=== PATIENT | male | born 1935 | race Caucasian/White ===

== ENCOUNTER 2018-03-02 20:32 | Observation (INO) | payer MEDICARE, OTHER ==
[2018-03-02 22:15] LABS: CHLORIDE,CL 104 mmol/L (98-107); SODIUM,NA 139 mmol/L (136-145)
[2018-03-02] MEDS: D5 1/2 NS w/ 20 mEq/L KCl 1,000 ML IV SCH (23:24)
--- NOTE | 2018-03-03 02:51 | EDM.PDOC ---
ED HPI GENERAL MEDICAL PROBLEM - General Chief Complaint: Neurological Problem Time Seen by Provider: 03/02/18 20:32 Source of Information: Reports: Patient - History of Present Illness Onset: Today Location: Reports: Generalized - Related Data Allergies Allergy/AdvReac Type Severity Reaction Status Date / Time atorvastatin calcium Allergy Body Aches Verified 08/28/16 17:56 [From Lipitor] Home Meds: Home Meds Clopidogrel [Plavix] 75 mg PO DAILY 04/29/14 [History] Polyethylene Glycol 3350 [Miralax] 16 gm PO DAILY PRN 09/01/14 [History] Furosemide [Lasix] 20 mg PO BID 02/28/16 [History] Levothyroxine [Synthroid] 50 mcg PO DAILY 02/28/16 [History] Omeprazole 20 mg PO DAILY 02/28/16 [History] Metoprolol Succinate [Toprol XL 100mg] 100 mg PO DAILY 08/28/16 [History] Lisinopril [Prinivil] 15 mg PO DAILY #45 tablet 09/05/16 [Rx] Insulin Aspart [NovoLOG] 7 unit SUBCUT ACBREAKFAST 03/02/18 [History] Insulin Aspart [NovoLOG] 10 unit SUBCUT BIDMEALS 03/02/18 [History] Insulin Degludec [Tresiba Flextouch U-100] 32 unit SQ DAILY 03/02/18 [History] Loperamide [Imodium] 2 mg PO DAILY PRN 03/02/18 [History] Ondansetron [Zofran ODT] 4 mg PO Q4H PRN 03/02/18 [History] Psyllium Husk [Metamucil] 660 gm PO DAILY 03/02/18 [History] buPROPion [Wellbutrin] 100 mg PO BID 03/02/18 [History] Past Medical History HEENT History: Reports: Cataract Cardiovascular History: Reports: Afib, Bypass, CAD, Heart Failure, Heart Valve Replacement, High Cholesterol, Hypertension, NV, Other (See Below) Other Cardiovascular History: carotid stenosis Respiratory History: Reports: None Gastrointestinal History: Reports: Chronic Constipation Genitourinary History: Reports: BPH, Chronic Renal Insuffiency Musculoskeletal History: Reports: Other (See Below) Other Musculoskeletal History: pelvic fracture Neurological History: Reports: None Psychiatric History: Reports: Depression Endocrine/Metabolic History: Reports: Diabetes, Type II, Hypothyroidism Hematologic History: Reports: Anemia Immunologic History: Reports: None Oncologic (Cancer) History: Reports: None Dermatologic History: Reports: None - Infectious Disease History Infectious Disease History: Reports: None - Past Surgical History HEENT Surgical History: Reports: Cataract Surgery, Tonsillectomy Cardiovascular Surgical History: Reports: Coronary Artery Bypass, Valve Replacement Male Surgical History: Reports: Other (See Below) Other Male Surgeries/Procedures: TURP, photoselective vaporization of prostate Neurological Surgical History: Reports: None Oncologic Surgical History: Reports: None Social & Family History - Family History Family Medical History: Noncontributory Cardiac: Reports: CAD Oncologic: Reports: Other (See Below) Other Oncologic Family History: Unknown primary cancers in mom and 1 sibling - Tobacco Use Smoking Status *Q: Never Smoker Second Hand Smoke Exposure: No - Caffeine Use Caffeine Use: Reports: None - Recreational Drug Use Recreational Drug Use: No - Living Situation & Occupation Living situation: Reports: , Alone ED ROS GENERAL - Review of Systems Review Of Systems: Unable To Obtain HEENT: Reports: No Symptoms Respiratory: Reports: No Symptoms Cardiovascular: Reports: No Symptoms Musculoskeletal: Reports: No Symptoms Skin: Reports: No Symptoms Neurological: Reports: No Symptoms ED EXAM, GENERAL - Physical Exam Exam: See Below General Appearance: Alert, WD/WN, No Apparent Distress Eye Exam: Bilateral Eye: EOMI, Normal Fundi, Normal Inspection, PERRL Ears: Normal External Exam, Normal Canal, Hearing Grossly Normal, Normal TMs Ear Exam: Bilateral Ear: Auricle Normal, Canal Normal, TM normal Nose: Normal Inspection, Normal Mucosa, No Blood Throat/Mouth: Normal Inspection, Normal Lips, Normal Teeth, Normal Gums, Normal Oropharynx, Normal Voice, No Airway Compromise Head: Atraumatic, Normocephalic Neck: Normal Inspection, Supple, Non-Tender, Full Range of Motion Respiratory/Chest: No Respiratory Distress, Lungs Clear, Normal Breath Sounds, No Accessory Muscle Use, Chest Non-Tender Cardiovascular: Normal Peripheral Pulses, Regular Rate, Rhythm, No Edema, No Gallop, No JVD, No Murmur, No Rub Peripheral Pulses: 4+: Radial (L), Radial (R) GI/Abdominal: Normal Bowel Sounds, Soft, Non-Tender, No Organomegaly, No Distention, No Abnormal Bruit, No Mass (Male) Exam: Deferred Rectal (Males) Exam: Deferred Back Exam: Normal Inspection, Full Range of Motion Extremities: Normal Inspection Neurological: Alert, Oriented, CN II-XII Intact, Normal Cognition, Normal Gait, Normal Reflexes, No Motor/Sensory Deficits Psychiatric: Normal Affect, Normal Mood Skin Exam: Warm, Dry, Intact, Normal Color, No Rash Course - Vital Signs Last Recorded V/S: Last Vital Signs Temp 36.1 C 03/03/18 02:00 Pulse 69 03/03/18 02:00 Resp 16 03/03/18 02:00 BP 145/88 H 03/03/18 02:00 Pulse Ox 97 03/03/18 02:00 - Orders/Labs/Meds Orders: Active Orders 24 hr Category Date Time Status EKG Documentation Completion [RC] STAT Care 03/02/18 20:34 Active Head wo Cont [CT] Stat Exams 03/02/18 20:34 Taken CULTURE BLOOD [BC] Stat Lab 03/02/18 21:24 Received CULTURE BLOOD [BC] Stat Lab 03/02/18 21:24 Received UA W/MICROSCOPIC [URIN] Stat Lab 03/02/18 21:01 Ordered Blood Culture x2 Reflex Set [OM.PC] Stat Oth 03/02/18 20:36 Ordered Labs: Laboratory Tests 03/02/18 03/02/18 03/02/18 Range/Units 21:24 21:24 21:24 WBC 13.1 H (4.0-10.0) x10^3/uL RBC 4.48 L (4.5-6.0) x10^6/uL Hgb 12.9 L D (14.0-18.0) g/dL Hct 39.2 L (40.0-52.0) % MCV 87.5 D (78.0-93.0) fL MCH 28.8 (26.0-32.0) pg MCHC 32.9 (32.0-36.0) g/dL RDW Coeff of Geraldine 15.9 H (10.0-15.0) % Plt Count 304 (130-400) x10^3/uL Neut % (Auto) 90.3 H (50.0-80.0) % Lymph % (Auto) 5.3 L (25.0-50.0) % [place] % (Auto) 3.9 (2.0-11.0) % Eos % (Auto) 0.3 (0.0-4.0) % Baso % (Auto) 0.2 (0.2-1.2) % PT 10.5 (9.6-11.4) SEC INR 1.0 L (2.0-3.5) Sodium 139 (136-145) mmol/L Potassium 3.5 (3.5-5.1) mmol/L Chloride 104 (98-107) mmol/L Carbon Dioxide 29 (21-32) mmol/L Anion Gap 9.5 L (10-20) mmol/L BUN 34 H (7-18) mg/dL Creatinine 1.4 H (0.70-1.30) mg/dL Est Cr Clr Drug Dosing TNP Estimated GFR (MDRD) 48 Glucose 77 (74-106) mg/dL POC Glucose (74-106) mg/dL Lactic Acid (0.4-2.0) mmol/L Calcium 8.5 (8.5-10.1) mg/dL Corrected Calcium 9.30 (8.5-10.1) mg/dL Total Bilirubin 0.3 (0.2-1.0) mg/dL AST 19 (15-37) U/L ALT 27 (16-63) U/L Alkaline Phosphatase 113 (46-116) U/L Troponin I < 0.017 (<=0.056) ng/mL C-Reactive Protein 1.0 H (<=0.9) mg/dL Total Protein 7.1 (6.4-8.2) g/dL Albumin 3.0 L (3.4-5.0) g/dL Globulin 4.1 Albumin/Globulin Ratio 0.73 TSH, Ultra Sensitive 5.147 H (0.358-3.74) uIU/mL 03/02/18 03/02/18 Range/Units 21:24 21:25 WBC (4.0-10.0) x10^3/uL RBC (4.5-6.0) x10^6/uL Hgb (14.0-18.0) g/dL Hct (40.0-52.0) % MCV (78.0-93.0) fL MCH (26.0-32.0) pg MCHC (32.0-36.0) g/dL RDW Coeff of Geraldine (10.0-15.0) % Plt Count (130-400) x10^3/uL Neut % (Auto) (50.0-80.0) % Lymph % (Auto) (25.0-50.0) % [place] % (Auto) (2.0-11.0) % Eos % (Auto) (0.0-4.0) % Baso % (Auto) (0.2-1.2) % PT (9.6-11.4) SEC INR (2.0-3.5) Sodium (136-145) mmol/L Potassium (3.5-5.1) mmol/L Chloride (98-107) mmol/L Carbon Dioxide (21-32) mmol/L Anion Gap (10-20) mmol/L BUN (7-18) mg/dL Creatinine (0.70-1.30) mg/dL Est Cr Clr Drug Dosing Estimated GFR (MDRD) Glucose (74-106) mg/dL POC Glucose 81 (74-106) mg/dL Lactic Acid 0.9 (0.4-2.0) mmol/L Calcium (8.5-10.1) mg/dL Corrected Calcium (8.5-10.1) mg/dL Total Bilirubin (0.2-1.0) mg/dL AST (15-37) U/L ALT (16-63) U/L Alkaline Phosphatase (46-116) U/L Troponin I (<=0.056) ng/mL C-Reactive Protein (<=0.9) mg/dL Total Protein (6.4-8.2) g/dL Albumin (3.4-5.0) g/dL Globulin Albumin/Globulin Ratio TSH, Ultra Sensitive (0.358-3.74) uIU/mL Meds: Medications Discontinued Medications Generic Name Dose Route Start Last Admin Trade Name Freq PRN Reason Stop Dose Admin Potassium Chloride/Dextrose/Sod Cl 1,000 mls @ 125 mls/hr 03/02/18 23:15 02/12 23:24 D5 1/2 Ns W/ 20 Meq/L Kcl IV 125 mls/hr ASDIRECTED ARY Administration Departure - Departure Time of Disposition: 23:00 Disposition: Refer to Observation Clinical Impression: Hypoglycemia - Discharge Information - My Orders Last 24 Hours: My Active Orders 03/02/18 20:34 EKG Documentation Completion [RC] STAT Head wo Cont [CT] Stat 03/02/18 20:36 Blood Culture x2 Reflex Set [OM.PC] Stat 03/02/18 21:01 UA W/MICROSCOPIC [URIN] Stat 03/02/18 21:24 CULTURE BLOOD [BC] Stat CULTURE BLOOD [BC] Stat - Assessment/Plan Last 24 Hours: My Active Orders 03/02/18 20:34 EKG Documentation Completion [RC] STAT Head wo Cont [CT] Stat 03/02/18 20:36 Blood Culture x2 Reflex Set [OM.PC] Stat 03/02/18 21:01 UA W/MICROSCOPIC [URIN] Stat 03/02/18 21:24 CULTURE BLOOD [BC] Stat CULTURE BLOOD [BC] Stat
[2018-03-03 06:37] VITALS: BP 142/67
[2018-03-03] MEDS ORDERED: Loperamide 2 MG Cap PO PRN (07:19)
[2018-03-03] MEDS ORDERED: Ondansetron 4 MG Tab.DIS PO PRN (07:19)
[2018-03-03] MEDS ORDERED: Polyethylene Glycol 3350 Powder 17 GM Packet PO PRN (07:19)
[2018-03-03] MEDS ORDERED: PSYLLIUM HUSK PO SCH (08:00)
[2018-03-03] MEDS ORDERED: METOPROLOL SUCCINATE PO SCH (08:00)
[2018-03-03] MEDS ORDERED: Insulin Degludec [Tresiba Flextouch U-100] SQ SCH (08:00)
[2018-03-03] MEDS ORDERED: LISINOPRIL PO SCH (08:00)
[2018-03-03] MEDS ORDERED: Insulin Aspart 100 Units/ML 3 ML Pen SUBCUT SCH (08:00)
[2018-03-03] MEDS ORDERED: BUPROPION 100 MG PO SCH (08:00)
[2018-03-03] MEDS ORDERED: Clopidogrel 75 MG Tab (OWN SUPPLY) PO SCH (08:00)
[2018-03-03] MEDS ORDERED: Levothyroxine 50 MCG Tab (OWN SUPPLY) PO SCH (08:00)
[2018-03-03] MEDS ORDERED: Furosemide 20 MG (OWN SUPPLY) PO SCH (08:00)
--- NOTE | 2018-03-03 08:29 | PCM.DCSUM1 ---
Discharge Summary - Hospital Course HPI Initial Comments: Patient was brought to the ED last evening for issues with hypoglycemia. Upon presentation, patient was very lethargic with a decreased in LOC. Initial serum blood sugar was 77. Patient has a history to IDDM and is currently on Novolog and Tresiba. According to old records, patient does not have a consistent history of hypoglycemia. CT of Head was obtained for LOC. CT did not show any acute problems. - Discharge Data Discharge Date: 03/03/18 Discharge Disposition: Home, Self-Care 01 Condition: Good - Patient Summary/Data Operative Procedure(s) Performed: None Labs Pending at D/C: None Hospital Course: Patient did have a couple of blood sugar reading in the 60's. Patient was appropriately treated. His mentation did improve to baseline at time of discharge. No medication changes were made. Patient did not have any complaints. Patient remained hemodynamically stable and afebrile. - Patient Instructions Diet: Diabetic Diet Activity: Rest and Relax Today Driving: Do Not Drive Showering/Bathing: May Shower Notify Provider of: Fever, Increased Pain, Nausea and/or Vomiting Other/Special Instructions: low blood sugars - Discharge Plan Home Medications: Home Meds Clopidogrel [Plavix] 75 mg PO DAILY 04/29/14 [History] Polyethylene Glycol 3350 [Miralax] 16 gm PO DAILY PRN 09/01/14 [History] Furosemide [Lasix] 20 mg PO BID 02/28/16 [History] Levothyroxine [Synthroid] 50 mcg PO DAILY 02/28/16 [History] Omeprazole 20 mg PO DAILY 02/28/16 [History] Metoprolol Succinate [Toprol XL 100mg] 100 mg PO DAILY 08/28/16 [History] Lisinopril [Prinivil] 15 mg PO DAILY #45 tablet 09/05/16 [Rx] Insulin Aspart [NovoLOG] 7 unit SUBCUT ACBREAKFAST 03/02/18 [History] Insulin Aspart [NovoLOG] 10 unit SUBCUT BIDMEALS 03/02/18 [History] Insulin Degludec [Tresiba Flextouch U-100] 32 unit SQ DAILY 03/02/18 [History] Loperamide [Imodium] 2 mg PO DAILY PRN 03/02/18 [History] Ondansetron [Zofran ODT] 4 mg PO Q4H PRN 03/02/18 [History] Psyllium Husk [Metamucil] 660 gm PO DAILY 03/02/18 [History] buPROPion [Wellbutrin] 100 mg PO BID 03/02/18 [History] Patient Handouts: Hypoglycemia Referrals: Essence Torrez DO [Primary Care Provider] - ([facility] will call you with an appt. time and date, with Dr. Geni Torrez) - Discharge Summary/Plan Comment DC Time >30 min.: No Discharge Summary/Plan Comment: Patient will be discharge home today. No changes with any home medications. Discussed consistency with taking DM meds and carb counting. Patient to follow up with PCP in one week for a recheck. - General Info Date of Service: 03/03/18 Admission Dx/Problem (Free Text: Hypoglycemia Decreased LOC Subjective Update: Patient offers no specific complaints. He denies any chest pain or SOB. He denies any focal neurological deficits. Functional Status: Reports: Pain Controlled, Tolerating Diet, Ambulating, Urinating Numeric/FACES Score: 0 - Review of Systems General: Denies: Fever, Weakness Pulmonary: Denies: Shortness of Breath, Cough Cardiovascular: Denies: Chest Pain, Palpitations Gastrointestinal: Denies: Abdominal Pain, Nausea, Vomiting Skin: Reports: Other Neurological: Denies: Dizziness, Headache - Patient Data Vitals - Most Recent: Last Vital Signs Temp 36.1 C 03/03/18 06:00 Pulse 71 03/03/18 06:00 Resp 20 03/03/18 06:00 BP 142/67 H 03/03/18 06:00 Pulse Ox 98 03/03/18 06:00 Weight - Most Recent: 95.663 kg I&O - Last 24 hours: Intake & Output 03/02/18 03/03/18 03/03/18 22:59 06:59 14:59 Intake Total 366 Balance 366 Lab Results - Last 24 hrs: Laboratory Results - last 24 hr 03/02/18 03/02/18 03/02/18 Range/Units 21:24 21:24 21:24 WBC 13.1 H (4.0-10.0) x10^3/uL RBC 4.48 L (4.5-6.0) x10^6/uL Hgb 12.9 L D (14.0-18.0) g/dL Hct 39.2 L (40.0-52.0) % MCV 87.5 D (78.0-93.0) fL MCH 28.8 (26.0-32.0) pg MCHC 32.9 (32.0-36.0) g/dL RDW Coeff of Geraldine 15.9 H (10.0-15.0) % Plt Count 304 (130-400) x10^3/uL Neut % (Auto) 90.3 H (50.0-80.0) % Lymph % (Auto) 5.3 L (25.0-50.0) % Mccreary % (Auto) 3.9 (2.0-11.0) % Eos % (Auto) 0.3 (0.0-4.0) % Baso % (Auto) 0.2 (0.2-1.2) % PT 10.5 (9.6-11.4) SEC INR 1.0 L (2.0-3.5) POC ABG pH (7.35-7.45) POC ABG pCO2 (35-45) mmHG POC ABG pO2 (80-105) mmHG POC ABG HCO3 (22-26) mmol/L POC ABG Total CO2 (23-27) mmol/L POC ABG O2 Sat (95-98) % POC ABG Base Excess (-2-3) mmol/L POC FiO2 Sodium 139 (136-145) mmol/L Potassium 3.5 (3.5-5.1) mmol/L Chloride 104 (98-107) mmol/L Carbon Dioxide 29 (21-32) mmol/L Anion Gap 9.5 L (10-20) mmol/L BUN 34 H (7-18) mg/dL Creatinine 1.4 H (0.70-1.30) mg/dL Est Cr Clr Drug Dosing TNP Estimated GFR (MDRD) 48 Glucose 77 (74-106) mg/dL POC Glucose (74-106) mg/dL Lactic Acid (0.4-2.0) mmol/L Calcium 8.5 (8.5-10.1) mg/dL Corrected Calcium 9.30 (8.5-10.1) mg/dL Total Bilirubin 0.3 (0.2-1.0) mg/dL AST 19 (15-37) U/L ALT 27 (16-63) U/L Alkaline Phosphatase 113 (46-116) U/L Troponin I < 0.017 (<=0.056) ng/mL C-Reactive Protein 1.0 H (<=0.9) mg/dL Total Protein 7.1 (6.4-8.2) g/dL Albumin 3.0 L (3.4-5.0) g/dL Globulin 4.1 Albumin/Globulin Ratio 0.73 TSH, Ultra Sensitive 5.147 H (0.358-3.74) uIU/mL Urine Color (YELLOW) Urine Appearance (CLEAR) Urine pH (5.0-8.0) Ur Specific [place] Urine Protein (NEGATIVE) mg/dL Urine Glucose (UA) (NEGATIVE) mg/dL Urine Ketones (NEGATIVE) mg/dL Urine Occult Blood (NEGATIVE) Urine Nitrite (NEGATIVE) Urine Bilirubin (NEGATIVE) Urine Urobilinogen (0.2) EU/dL Ur Leukocyte Esterase (NEGATIVE) Urine RBC (NOT SEEN) /HPF Urine WBC (NOT SEEN) /HPF Ur Squamous Epith Cells (NEGATIVE) /HPF Urine Bacteria (NEGATIVE) /HPF Urine Mucus (NEGATIVE) /LPF 03/02/18 03/02/18 03/02/18 Range/Units 21:24 21:25 22:34 WBC (4.0-10.0) x10^3/uL RBC (4.5-6.0) x10^6/uL Hgb (14.0-18.0) g/dL Hct (40.0-52.0) % MCV (78.0-93.0) fL MCH (26.0-32.0) pg MCHC (32.0-36.0) g/dL RDW Coeff of Geraldine (10.0-15.0) % Plt Count (130-400) x10^3/uL Neut % (Auto) (50.0-80.0) % Lymph % (Auto) (25.0-50.0) % Mccreary % (Auto) (2.0-11.0) % Eos % (Auto) (0.0-4.0) % Baso % (Auto) (0.2-1.2) % PT (9.6-11.4) SEC INR (2.0-3.5) POC ABG pH (7.35-7.45) POC ABG pCO2 (35-45) mmHG POC ABG pO2 (80-105) mmHG POC ABG HCO3 (22-26) mmol/L POC ABG Total CO2 (23-27) mmol/L POC ABG O2 Sat (95-98) % POC ABG Base Excess (-2-3) mmol/L POC FiO2 Sodium (136-145) mmol/L Potassium (3.5-5.1) mmol/L Chloride (98-107) mmol/L Carbon Dioxide (21-32) mmol/L Anion Gap (10-20) mmol/L BUN (7-18) mg/dL Creatinine (0.70-1.30) mg/dL Est Cr Clr Drug Dosing Estimated GFR (MDRD) Glucose (74-106) mg/dL POC Glucose 81 65 L (74-106) mg/dL Lactic Acid 0.9 (0.4-2.0) mmol/L Calcium (8.5-10.1) mg/dL Corrected Calcium (8.5-10.1) mg/dL Total Bilirubin (0.2-1.0) mg/dL AST (15-37) U/L ALT (16-63) U/L Alkaline Phosphatase (46-116) U/L Troponin I (<=0.056) ng/mL C-Reactive Protein (<=0.9) mg/dL Total Protein (6.4-8.2) g/dL Albumin (3.4-5.0) g/dL Globulin Albumin/Globulin Ratio TSH, Ultra Sensitive (0.358-3.74) uIU/mL Urine Color (YELLOW) Urine Appearance (CLEAR) Urine pH (5.0-8.0) Ur Specific [place] Urine Protein (NEGATIVE) mg/dL Urine Glucose (UA) (NEGATIVE) mg/dL Urine Ketones (NEGATIVE) mg/dL Urine Occult Blood (NEGATIVE) Urine Nitrite (NEGATIVE) Urine Bilirubin (NEGATIVE) Urine Urobilinogen (0.2) EU/dL Ur Leukocyte Esterase (NEGATIVE) Urine RBC (NOT SEEN) /HPF Urine WBC (NOT SEEN) /HPF Ur Squamous Epith Cells (NEGATIVE) /HPF Urine Bacteria (NEGATIVE) /HPF Urine Mucus (NEGATIVE) /LPF 03/02/18 03/02/18 03/03/18 Range/Units 23:02 23:30 00:22 WBC (4.0-10.0) x10^3/uL RBC (4.5-6.0) x10^6/uL Hgb (14.0-18.0) g/dL Hct (40.0-52.0) % MCV (78.0-93.0) fL MCH (26.0-32.0) pg MCHC (32.0-36.0) g/dL RDW Coeff of Geraldine (10.0-15.0) % Plt Count (130-400) x10^3/uL Neut % (Auto) (50.0-80.0) % Lymph % (Auto) (25.0-50.0) % Mccreary % (Auto) (2.0-11.0) % Eos % (Auto) (0.0-4.0) % Baso % (Auto) (0.2-1.2) % PT (9.6-11.4) SEC INR (2.0-3.5) POC ABG pH 7.436 (7.35-7.45) POC ABG pCO2 40 (35-45) mmHG POC ABG pO2 73 L (80-105) mmHG POC ABG HCO3 27 H (22-26) mmol/L POC ABG Total CO2 28 H (23-27) mmol/L POC ABG O2 Sat 95 (95-98) % POC ABG Base Excess 3 (-2-3) mmol/L POC FiO2 0.28 Sodium (136-145) mmol/L Potassium (3.5-5.1) mmol/L Chloride (98-107) mmol/L Carbon Dioxide (21-32) mmol/L Anion Gap (10-20) mmol/L BUN (7-18) mg/dL Creatinine (0.70-1.30) mg/dL Est Cr Clr Drug Dosing Estimated GFR (MDRD) Glucose (74-106) mg/dL POC Glucose 67 L 84 (74-106) mg/dL Lactic Acid (0.4-2.0) mmol/L Calcium (8.5-10.1) mg/dL Corrected Calcium (8.5-10.1) mg/dL Total Bilirubin (0.2-1.0) mg/dL AST (15-37) U/L ALT (16-63) U/L Alkaline Phosphatase (46-116) U/L Troponin I (<=0.056) ng/mL C-Reactive Protein (<=0.9) mg/dL Total Protein (6.4-8.2) g/dL Albumin (3.4-5.0) g/dL Globulin Albumin/Globulin Ratio TSH, Ultra Sensitive (0.358-3.74) uIU/mL Urine Color (YELLOW) Urine Appearance (CLEAR) Urine pH (5.0-8.0) Ur Specific [place] Urine Protein (NEGATIVE) mg/dL Urine Glucose (UA) (NEGATIVE) mg/dL Urine Ketones (NEGATIVE) mg/dL Urine Occult Blood (NEGATIVE) Urine Nitrite (NEGATIVE) Urine Bilirubin (NEGATIVE) Urine Urobilinogen (0.2) EU/dL Ur Leukocyte Esterase (NEGATIVE) Urine RBC (NOT SEEN) /HPF Urine WBC (NOT SEEN) /HPF Ur Squamous Epith Cells (NEGATIVE) /HPF Urine Bacteria (NEGATIVE) /HPF Urine Mucus (NEGATIVE) /LPF 03/03/18 03/03/18 03/03/18 Range/Units 01:31 03:49 05:54 WBC (4.0-10.0) x10^3/uL RBC (4.5-6.0) x10^6/uL Hgb (14.0-18.0) g/dL Hct (40.0-52.0) % MCV (78.0-93.0) fL MCH (26.0-32.0) pg MCHC (32.0-36.0) g/dL RDW Coeff of Geraldine (10.0-15.0) % Plt Count (130-400) x10^3/uL Neut % (Auto) (50.0-80.0) % Lymph % (Auto) (25.0-50.0) % Mccreary % (Auto) (2.0-11.0) % Eos % (Auto) (0.0-4.0) % Baso % (Auto) (0.2-1.2) % PT (9.6-11.4) SEC INR (2.0-3.5) POC ABG pH (7.35-7.45) POC ABG pCO2 (35-45) mmHG POC ABG pO2 (80-105) mmHG POC ABG HCO3 (22-26) mmol/L POC ABG Total CO2 (23-27) mmol/L POC ABG O2 Sat (95-98) % POC ABG Base Excess (-2-3) mmol/L POC FiO2 Sodium (136-145) mmol/L Potassium (3.5-5.1) mmol/L Chloride (98-107) mmol/L Carbon Dioxide (21-32) mmol/L Anion Gap (10-20) mmol/L BUN (7-18) mg/dL Creatinine (0.70-1.30) mg/dL Est Cr Clr Drug Dosing Estimated GFR (MDRD) Glucose (74-106) mg/dL POC Glucose 188 H 201 H 209 H (74-106) mg/dL Lactic Acid (0.4-2.0) mmol/L Calcium (8.5-10.1) mg/dL Corrected Calcium (8.5-10.1) mg/dL Total Bilirubin (0.2-1.0) mg/dL AST (15-37) U/L ALT (16-63) U/L Alkaline Phosphatase (46-116) U/L Troponin I (<=0.056) ng/mL C-Reactive Protein (<=0.9) mg/dL Total Protein (6.4-8.2) g/dL Albumin (3.4-5.0) g/dL Globulin Albumin/Globulin Ratio TSH, Ultra Sensitive (0.358-3.74) uIU/mL Urine Color (YELLOW) Urine Appearance (CLEAR) Urine pH (5.0-8.0) Ur Specific [place] Urine Protein (NEGATIVE) mg/dL Urine Glucose (UA) (NEGATIVE) mg/dL Urine Ketones (NEGATIVE) mg/dL Urine Occult Blood (NEGATIVE) Urine Nitrite (NEGATIVE) Urine Bilirubin (NEGATIVE) Urine Urobilinogen (0.2) EU/dL Ur Leukocyte Esterase (NEGATIVE) Urine RBC (NOT SEEN) /HPF Urine WBC (NOT SEEN) /HPF Ur Squamous Epith Cells (NEGATIVE) /HPF Urine Bacteria (NEGATIVE) /HPF Urine Mucus (NEGATIVE) /LPF 03/03/18 03/03/18 Range/Units 07:00 08:11 WBC (4.0-10.0) x10^3/uL RBC (4.5-6.0) x10^6/uL Hgb (14.0-18.0) g/dL Hct (40.0-52.0) % MCV (78.0-93.0) fL MCH (26.0-32.0) pg MCHC (32.0-36.0) g/dL RDW Coeff of Geraldine (10.0-15.0) % Plt Count (130-400) x10^3/uL Neut % (Auto) (50.0-80.0) % Lymph % (Auto) (25.0-50.0) % Mccreary % (Auto) (2.0-11.0) % Eos % (Auto) (0.0-4.0) % Baso % (Auto) (0.2-1.2) % PT (9.6-11.4) SEC INR (2.0-3.5) POC ABG pH (7.35-7.45) POC ABG pCO2 (35-45) mmHG POC ABG pO2 (80-105) mmHG POC ABG HCO3 (22-26) mmol/L POC ABG Total CO2 (23-27) mmol/L POC ABG O2 Sat (95-98) % POC ABG Base Excess (-2-3) mmol/L POC FiO2 Sodium (136-145) mmol/L Potassium (3.5-5.1) mmol/L Chloride (98-107) mmol/L Carbon Dioxide (21-32) mmol/L Anion Gap (10-20) mmol/L BUN (7-18) mg/dL Creatinine (0.70-1.30) mg/dL Est Cr Clr Drug Dosing Estimated GFR (MDRD) Glucose (74-106) mg/dL POC Glucose 227 H (74-106) mg/dL Lactic Acid (0.4-2.0) mmol/L Calcium (8.5-10.1) mg/dL Corrected Calcium (8.5-10.1) mg/dL Total Bilirubin (0.2-1.0) mg/dL AST (15-37) U/L ALT (16-63) U/L Alkaline Phosphatase (46-116) U/L Troponin I (<=0.056) ng/mL C-Reactive Protein (<=0.9) mg/dL Total Protein (6.4-8.2) g/dL Albumin (3.4-5.0) g/dL Globulin Albumin/Globulin Ratio TSH, Ultra Sensitive (0.358-3.74) uIU/mL Urine Color Yellow (YELLOW) Urine Appearance Clear (CLEAR) Urine pH 7.0 (5.0-8.0) Ur Specific [place] 1.015 Urine Protein 30 H (NEGATIVE) mg/dL Urine Glucose (UA) 100 H (NEGATIVE) mg/dL Urine Ketones Negative (NEGATIVE) mg/dL Urine Occult Blood Negative (NEGATIVE) Urine Nitrite Negative (NEGATIVE) Urine Bilirubin Negative (NEGATIVE) Urine Urobilinogen 0.2 (0.2) EU/dL Ur Leukocyte Esterase Negative (NEGATIVE) Urine RBC 0-5 (NOT SEEN) /HPF Urine WBC Not seen (NOT SEEN) /HPF Ur Squamous Epith Cells Not seen (NEGATIVE) /HPF Urine Bacteria Rare (NEGATIVE) /HPF Urine Mucus Rare H (NEGATIVE) /LPF Med Orders - Current: Current Medications Clopidogrel Bisulfate (Plavix) 75 mg PO DAILY [facility] Furosemide (Lasix) 20 mg PO BID [facility] Insulin Aspart (Novolog) 7 unit SUBCUT ACBREAKFAST [facility] Insulin Aspart (Novolog) 10 unit SUBCUT BIDMEALS [facility] Levothyroxine Sodium (Synthroid) 50 mcg PO DAILY [facility] Lisinopril (Prinivil) 15 mg PO DAILY [facility] Loperamide HCl (Imodium) 2 mg PO DAILY PRN PRN Reason: Diarrhea Non-Formulary Medication (Bupropion [Wellbutrin]) 100 mg PO BID [facility] Non-Formulary Medication (Insulin Degludec [Tresiba Flextouch U-100]) 32 unit SQ DAILY [facility] Non-Formulary Medication (Metoprolol Succinate [Toprol Xl 100mg]) 100 mg PO DAILY [facility] Non-Formulary Medication (Psyllium Husk [Metamucil]) 660 gm PO DAILY [facility] Omeprazole (Omeprazole) 20 mg PO DAILY [facility] Ondansetron HCl (Zofran Odt) 4 mg PO Q4H PRN PRN Reason: Nausea Polyethylene Glycol (Miralax) 16 gm PO DAILY PRN PRN Reason: Constipation Discontinued Medications Potassium Chloride/Dextrose/Sod Cl (D5 1/2 Ns W/ 20 Meq/L Kcl) 1,000 mls @ 125 mls/hr IV ASDIRECTED [facility] Last Admin: 03/02/18 23:24 Dose: 125 mls/hr - Exam Quality Assessment: Reports: Skin Breakdown (prior to admission; see nursing notes) General: Reports: Alert, Oriented, Cooperative, No Acute Distress Neck: Reports: Supple Lungs: Reports: Clear to Auscultation, Normal Respiratory Effort, Decreased Breath Sounds Cardiovascular: Reports: Regular Rate, Regular Rhythm GI/Abdominal Exam: Normal Bowel Sounds, Soft, Non-Tender Skin: Reports: Warm, Dry, Other (skin breakdown; see nursing notes) Neurological: Reports: No New Focal Deficit *Q Meaningful Use (DIS) - VTE *Q VTE Mechanical Contraindications *Q: At Risk for Falls
[2018-03-03] MEDS ORDERED: Omeprazole 20 MG Cap.CR PO SCH (08:45)
[2018-03-04] MEDS ORDERED: Insulin Aspart 100 Units/ML 3 ML Pen SUBCUT SCH (07:00)
== END 2018-03-03 09:45 | disposition home or self-care (01) ==
LOC: VM.ED 20:32 → VM.MS 22:24
PROVIDERS: ADMIT Physician Assistant; ATTEND Physician Assistant
DX: E11.649 Type 2 diabetes mellitus with hypoglycemia without coma (principal); I13.0 Hypertensive heart and chronic kidney disease with heart failure and stage 1 through stage 4 chronic kidney disease, or unspecified chronic kidney disease; E11.22 Type 2 diabetes mellitus with diabetic chronic kidney disease; N18.9 Chronic kidney disease, unspecified; I50.9 Heart failure, unspecified; I48.91 Unspecified atrial fibrillation; I25.10 Atherosclerotic heart disease of native coronary artery without angina pectoris; E78.00 Pure hypercholesterolemia, unspecified; I25.2 Old myocardial infarction; N40.0 Benign prostatic hyperplasia without lower urinary tract symptoms; E03.9 Hypothyroidism, unspecified; F32.9 Major depressive disorder, single episode, unspecified; Z79.02 Long term (current) use of antithrombotics/antiplatelets; Z79.899 Other long term (current) drug therapy; Z79.4 Long term (current) use of insulin; Z88.8 Allergy status to other drugs, medicaments and biological substances; Z95.1 Presence of aortocoronary bypass graft; Z95.2 Presence of prosthetic heart valve
CPT/HCPCS: 36415; 36600; 70450; 80053; 81001; 82803; 82962; 83605; 84443; 84484; 85025; 85610; 86140; 87040; 93005; 96365; 96366; 99285; G0378; J3480

== ENCOUNTER 2018-11-06 11:57 | Emergency (ER) | payer MEDICARE, OTHER ==
--- NOTE | 2018-11-06 12:29 | EDM.PDOC ---
ED HPI GENERAL MEDICAL PROBLEM - General Stated Complaint: bradycardia Time Seen by Provider: 11/06/18 11:57 Source of Information: Reports: Patient, EMS, EMS Notes Reviewed History Limitations: Reports: No Limitations - History of Present Illness INITIAL COMMENTS - FREE TEXT/NARRATIVE: Patient comes into the emergency department with after having his vitals checked at the group home which showed him to have a bradycardic event. Patient states he missed his footing this morning and slid down to the ground needed to call for help to get up for he was not strong enough. Staff at the [facility] had helped him up and took his vitals. When I found his vitals they found that his heart rate was anywhere between 30s to 60s. They contacted the ambulance to have him transported for further evaluation. Patient denies any complaints of injuries, shortness breath, chest pain, dizziness, lightheadedness, abdominal pain, abnormal swelling in lower extremities, or diarrhea. Patient denies recently being ill. He states he is on multiple medications for his heart and his blood pressure. Patient states that he has had a history of low heart rate before.He is not sure why he had to come in. Onset: Sudden - Related Data Allergies Allergy/AdvReac Type Severity Reaction Status Date / Time atorvastatin calcium AdvReac Unknown Body Aches Verified 05/06/18 14:07 [From Lipitor] Home Meds: Home Meds Clopidogrel [Plavix] 75 mg PO DAILY 04/29/14 [History] Polyethylene Glycol 3350 [Miralax] 17 gm PO DAILY PRN 09/01/14 [History] Levothyroxine [Synthroid] 50 mcg PO DAILY@1700 02/28/16 [History] Metoprolol Succinate [Toprol XL 100mg] 100 mg PO DAILY 08/28/16 [History] Lisinopril [Prinivil] 15 mg PO DAILY #45 tablet 09/05/16 [Rx] Insulin Aspart [NovoLOG] 6 unit SUBCUT ACBREAKFAST 03/02/18 [History] Insulin Aspart [NovoLOG] 10 unit SUBCUT BIDMEALS 03/02/18 [History] Insulin Degludec [Tresiba Flextouch U-100] 32 unit SQ DAILY 03/02/18 [History] Loperamide [Imodium] 2 mg PO DAILY PRN 03/02/18 [History] Ondansetron [Zofran ODT] 4 mg PO Q4H PRN 03/02/18 [History] Psyllium Husk [Metamucil] 1 scoop PO DAILY 03/02/18 [History] Furosemide 20 mg PO BID 05/06/18 [History] buPROPion [Wellbutrin] 75 mg PO BID 05/06/18 [History] Pantoprazole [ProTONIX] 40 mg PO DAILY 05/07/18 [History] Past Medical History HEENT History: Reports: Cataract Cardiovascular History: Reports: Afib, Bypass, CAD, Heart Failure, Heart Valve Replacement, High Cholesterol, Hypertension, [place], Other (See Below) Other Cardiovascular History: carotid stenosis Respiratory History: Reports: None Gastrointestinal History: Reports: Chronic Constipation Genitourinary History: Reports: BPH, Chronic Renal Insuffiency Musculoskeletal History: Reports: Other (See Below) Other Musculoskeletal History: pelvic fracture Neurological History: Reports: None Psychiatric History: Reports: Depression Endocrine/Metabolic History: Reports: Diabetes, Type II, Hypothyroidism Hematologic History: Reports: Anemia Immunologic History: Reports: None Oncologic (Cancer) History: Reports: None Dermatologic History: Reports: None - Infectious Disease History Infectious Disease History: Reports: None - Past Surgical History HEENT Surgical History: Reports: Cataract Surgery, Tonsillectomy Cardiovascular Surgical History: Reports: Coronary Artery Bypass, Valve Replacement Male Surgical History: Reports: Other (See Below) Other Male Surgeries/Procedures: TURP, photoselective vaporization of prostate Neurological Surgical History: Reports: None Oncologic Surgical History: Reports: None Social & Family History - Family History Family Medical History: Noncontributory Cardiac: Reports: CAD Oncologic: Reports: Other (See Below) Other Oncologic Family History: Unknown primary cancers in mom and 1 sibling - Caffeine Use Caffeine Use: Reports: None - Living Situation & Occupation Living situation: Reports: , Alone ED ROS GENERAL - Review of Systems Review Of Systems: See Below Constitutional: Reports: No Symptoms HEENT: Reports: No Symptoms Respiratory: Reports: No Symptoms Cardiovascular: Reports: No Symptoms Endocrine: Reports: No Symptoms GI/Abdominal: Reports: No Symptoms : Reports: No Symptoms Musculoskeletal: Reports: No Symptoms Skin: Reports: No Symptoms Neurological: Reports: No Symptoms Psychiatric: Reports: No Symptoms Hematologic/Lymphatic: Reports: No Symptoms Immunologic: Reports: No Symptoms ED EXAM, GENERAL - Physical Exam Exam: See Below Exam Limited By: No Limitations General Appearance: Alert, WD/WN, No Apparent Distress Throat/Mouth: Normal Inspection, Normal Lips Head: Atraumatic, Normocephalic Neck: Normal Inspection, Supple, Non-Tender, Full Range of Motion Respiratory/Chest: No Respiratory Distress, Lungs Clear, Normal Breath Sounds, No Accessory Muscle Use, Chest Non-Tender Cardiovascular: Normal Peripheral Pulses, Regular Rate, Rhythm Back Exam: Normal Inspection, Full Range of Motion Extremities: Normal Inspection, Normal Range of Motion, Normal Capillary Refill Neurological: Alert, Oriented Skin Exam: Warm, Dry, Intact, Normal Color Departure - Departure Time of Disposition: 12:35 Disposition: Home, Self-Care 01 Condition: Good Clinical Impression: History of bradycardia - Discharge Information *PRESCRIPTION DRUG MONITORING PROGRAM REVIEWED*: Not Applicable *COPY OF PRESCRIPTION DRUG MONITORING REPORT IN PATIENT JASMIN: Not Applicable Instructions: Bradycardia, Adult Referrals: Essence Torrez DO [Primary Care Provider] - Additional Instructions: 1. increase water intake 2. Decrease metoprolol dose in half over the weekend and follow up with PCP on Thursday 3. If symptoms do arise please come back to the emergency department as needed for further evaluation and management 4. Keep your walking area clear of clutter and debris to prevent falls 5. Get up slowing from the laying to seated position 6. Call with any questions or concerns. - Assessment/Plan Assessment:: 1. bradycardia Plan: 1. Patient lost his footing and slid down to the ground was unable to get up, he ended up calling for assistance. They took his vitals upon that he was bradycardic and ended up on eminence. Patient was resistant on coming into the emergency department for he did not have any injuries. Upon arrival to the emergency department he's continues to deny any complaints or concerns. He does not want any labs drawn. Does not want any further workup. He states he feels just fine he was looking just to get assistance up from the ground. He knows that he has bradycardic episodes and his providers are aware. His pulses during the emergency department show his heart rate in the 50s-60s most the time with the dip down into the 30s for 2-3 beats before coming back up. Patient continues to deny any injuries, chest pain, shortness of breath, dizziness or lightheaded with movement. She would like to go back home and have his lunch. 2. It is recommended that they cut his metoprolol dose in half for the course of next 3 days and have him see his PCP on Thursday for further evaluation and management. 3. Questions and concerns addressed prior to discharge
[2018-11-06 12:52] VITALS: BP 152/74
== END 2018-11-06 13:30 | disposition home or self-care (01) ==
LOC: VM.ED 11:57
DX: R00.1 Bradycardia, unspecified (principal); I48.91 Unspecified atrial fibrillation; I13.0 Hypertensive heart and chronic kidney disease with heart failure and stage 1 through stage 4 chronic kidney disease, or unspecified chronic kidney disease; I50.9 Heart failure, unspecified; N18.9 Chronic kidney disease, unspecified; I25.10 Atherosclerotic heart disease of native coronary artery without angina pectoris; E78.00 Pure hypercholesterolemia, unspecified; E11.22 Type 2 diabetes mellitus with diabetic chronic kidney disease; I25.2 Old myocardial infarction; F32.9 Major depressive disorder, single episode, unspecified; E03.9 Hypothyroidism, unspecified; Z88.8 Allergy status to other drugs, medicaments and biological substances; Z79.01 Long term (current) use of anticoagulants; Z95.1 Presence of aortocoronary bypass graft; Z79.899 Other long term (current) drug therapy; Z79.4 Long term (current) use of insulin
CPT/HCPCS: 99284; 99284-GF

== ENCOUNTER 2018-11-30 13:19 | Emergency (ER) | payer MEDICARE, OTHER ==
--- NOTE | 2018-11-30 13:33 | EDM.PDOC ---
ED HPI GENERAL MEDICAL PROBLEM - General Stated Complaint: POSSIBLE STROKE Time Seen by Provider: 11/30/18 13:19 Source of Information: Reports: EMS, EMS Notes Reviewed, RN History Limitations: Reports: Altered Mental Status - History of Present Illness INITIAL COMMENTS - FREE TEXT/NARRATIVE: Patient comes in the emergency department by EMS with concerns of a possible stroke. Patient comes in with EMS staff. They report the pt had fallen out of his wheelchair approximately 6 AM this morning with no injuries noted. Patient went on with his normal day routines. However it is uncertain when abnormalities have been noted however long term staff had contacted EMS approximately 20 minutes ago for patient who was not acting himself. They felt that he had slurred speech. He was not responsive as normal. They also felt that he had more right-sided weakness than normal. Patient did have a blood sugar checked prior to arrival to the emergency department and did show within normal limits is around 123. Patient also has normotensive blood pressure and normal cardiac rhythm. Contact made with long term staff: per report- patient had slipped and fallen out of his wheelchair at 6 AM unaccompanied. Assessment was completed and they did not find any abnormalities. However at 7 AM they noticed that his right arm was weak and he is not able to utilize in the grass items. They also stated that nursing personnel were having difficulty transporting the patient to the bathroom and he was not able to follow commands is appropriate at 7 AM. At 7:30 to 8 AM they checked his blood sugar was 91 they withheld his morning insulin dose for she was not hungry. Around 9 AM they gave him his complete medication list noted at that time that he was not able to hold a cup in that arm and he was not able follow commands as appropriate as he normally does he was responding that he cannot do it. At around 11:30 he was checked on again his blood sugar at that point was 136 and he was requested to come to lunch. When he was in the dining room he was not interacting with other individuals which was abnormal for him. At that time frame he is not eating as well. When he was approached she was unable to follow commands appropriately and he says things are just not working on his right arm again was noted not to be moving it was dangling at his side and he was not able to lift it up. He also stated at that time frame that he could not get his legs to work. Nursing staff have stated that he does have difficulty with ambulation that time however but it is markedly worse at 11:30. At approximately 11:30 they contacted his PCP which suggested that he be evaluated in the emergency department. At this time frame EMS was contacted and the patient was transported. Pt is on plavix daily and did get his am dose today. Quality: Reports: Other Improves with: Reports: None Worsens with: Reports: None Context: Reports: Other Associated Symptoms: Reports: No Other Symptoms Treatments SENIOR CREDIT OFFICER: Reports: EKG - Related Data Allergies Allergy/AdvReac Type Severity Reaction Status Date / Time atorvastatin calcium AdvReac Unknown Body Aches Verified 11/06/18 12:43 [From Lipitor] Home Meds: Home Meds Clopidogrel [Plavix] 75 mg PO DAILY 04/29/14 [History] Polyethylene Glycol 3350 [Miralax] 17 gm PO DAILY PRN 09/01/14 [History] Levothyroxine [Synthroid] 50 mcg PO DAILY@1700 02/28/16 [History] Metoprolol Succinate [Toprol XL 100mg] 100 mg PO DAILY 08/28/16 [History] Insulin Aspart [NovoLOG] 6 unit SUBCUT ACBREAKFAST 03/02/18 [History] Insulin Aspart [NovoLOG] 10 unit SUBCUT BIDMEALS 03/02/18 [History] Insulin Degludec [Tresiba Flextouch U-100] 28 unit SQ DAILY 03/02/18 [History] Loperamide [Imodium] 2 mg PO DAILY PRN 03/02/18 [History] Ondansetron [Zofran ODT] 4 mg PO Q4H PRN 03/02/18 [History] Psyllium Husk [Metamucil] 1 scoop PO DAILY 03/02/18 [History] Furosemide 40 mg PO BID 05/06/18 [History] buPROPion [Wellbutrin] 100 mg PO BID 05/06/18 [History] Lisinopril [Prinivil] 10 mg PO DAILY 11/06/18 [History] Omeprazole 20 mg PO DAILY 11/06/18 [History] Oxybutynin 5 mg PO BID 11/06/18 [History] Past Medical History HEENT History: Reports: Cataract Cardiovascular History: Reports: Afib, Bypass, CAD, Heart Failure, Heart Valve Replacement, High Cholesterol, Hypertension, [place], Other (See Below) Other Cardiovascular History: carotid stenosis Respiratory History: Reports: None Gastrointestinal History: Reports: Chronic Constipation Genitourinary History: Reports: BPH, Chronic Renal Insuffiency Musculoskeletal History: Reports: Other (See Below) Other Musculoskeletal History: pelvic fracture Neurological History: Reports: None Psychiatric History: Reports: Depression Endocrine/Metabolic History: Reports: Diabetes, Type II, Hypothyroidism Hematologic History: Reports: Anemia Immunologic History: Reports: None Oncologic (Cancer) History: Reports: None Dermatologic History: Reports: None - Infectious Disease History Infectious Disease History: Reports: None - Past Surgical History HEENT Surgical History: Reports: Cataract Surgery, Tonsillectomy Cardiovascular Surgical History: Reports: Coronary Artery Bypass, Valve Replacement Male Surgical History: Reports: Other (See Below) Other Male Surgeries/Procedures: TURP, photoselective vaporization of prostate Neurological Surgical History: Reports: None Oncologic Surgical History: Reports: None Social & Family History - Family History Family Medical History: Noncontributory Cardiac: Reports: CAD Oncologic: Reports: Other (See Below) Other Oncologic Family History: Unknown primary cancers in mom and 1 sibling - Caffeine Use Caffeine Use: Reports: None - Living Situation & Occupation Living situation: Reports: , Alone ED ROS GENERAL - Review of Systems Review Of Systems: See Below Constitutional: Reports: Malaise HEENT: Reports: No Symptoms Respiratory: Reports: No Symptoms Cardiovascular: Reports: No Symptoms Endocrine: Reports: No Symptoms : Reports: No Symptoms Musculoskeletal: Reports: Other Skin: Reports: No Symptoms Neurological: Reports: Difficulty Walking, Weakness, Gait Disturbance Psychiatric: Reports: No Symptoms Hematologic/Lymphatic: Reports: No Symptoms Immunologic: Reports: No Symptoms ED EXAM, GENERAL - Physical Exam Exam: See Below Exam Limited By: No Limitations General Appearance: Alert, No Apparent Distress, Lethargic Eye Exam: Bilateral Eye: Abnormal EOM (not able to follow command or tracking. opens eyes to external stimuli only ), PERRL (sluggish. No drifty,localizing, or shifting noted.) Nose: Normal Inspection Head: Atraumatic, Normocephalic Neck: Normal Inspection, Supple Respiratory/Chest: No Respiratory Distress, Lungs Clear, Normal Breath Sounds, No Accessory Muscle Use Cardiovascular: Normal Peripheral Pulses, Regular Rate, Rhythm GI/Abdominal: Normal Bowel Sounds, Soft, Non-Tender, No Distention Back Exam: Normal Inspection Extremities: Non-Tender, Normal Capillary Refill, Limited Range of Motion (due to chonic mobility issues ) Neurological: Inattentive, Slow to Respond Psychiatric: Normal Affect, Normal Mood Skin Exam: Warm, Dry, Intact EKG INTERPRETATION EKG Date: 11/30/18 (2nd degree Mobitz II) Comparison: No Change Course - Orders/Labs/Meds Orders: Active Orders 24 hr Category Date Time Status Cardiac Monitoring [RC] . DIRECTED Care 11/30/18 14:23 Active EKG Documentation Completion [RC] STAT Care 11/30/18 14:23 Active Head wo Cont [CT] Stat Exams 11/30/18 13:20 Taken Sodium Chloride 0.9% [Saline Flush] Med 11/30/18 14:23 Active 10 ml FLUSH ASDIRECTED PRN Peripheral IV Insertion Adult [OM.PC] Stat Oth 11/30/18 14:23 Ordered Medication Orders Sodium Chloride (Saline Flush) 10 ml FLUSH ASDIRECTED PRN PRN Reason: Keep Vein Open Labs: Laboratory Tests 11/30/18 11/30/18 11/30/18 Range/Units 13:40 13:40 13:40 WBC 9.0 (4.0-10.0) x10^3/uL RBC 4.38 L (4.5-6.0) x10^6/uL Hgb 12.1 L (14.0-18.0) g/dL Hct 37.7 L (40.0-52.0) % MCV 86.1 (78.0-93.0) fL MCH 27.6 (26.0-32.0) pg MCHC 32.1 (32.0-36.0) g/dL RDW Coeff of Geraldine 16.5 H (10.0-15.0) % Plt Count 357 (130-400) x10^3/uL Neut % (Auto) 73.9 (50.0-80.0) % Lymph % (Auto) 12.7 L (25.0-50.0) % Jack % (Auto) 10.4 (2.0-11.0) % Eos % (Auto) 2.6 (0.0-4.0) % Baso % (Auto) 0.4 (0.2-1.2) % PT 10.8 (9.6-11.4) SEC INR 1.0 L (2.0-3.5) APTT 24.8 (21.3-33.5) SEC Sodium 141 (136-145) mmol/L Potassium 4.0 (3.5-5.1) mmol/L Chloride 104 (98-107) mmol/L Carbon Dioxide 27 (21-32) mmol/L Anion Gap 14.0 (10-20) mmol/L BUN 38 H (7-18) mg/dL Creatinine 1.5 H (0.70-1.30) mg/dL Est Cr Clr Drug Dosing TNP Estimated GFR (MDRD) 44 Glucose 98 (74-106) mg/dL Calcium 9.0 (8.5-10.1) mg/dL POC Troponin I (0.00-0.08) ng/mL 11/30/18 Range/Units 13:44 WBC (4.0-10.0) x10^3/uL RBC (4.5-6.0) x10^6/uL Hgb (14.0-18.0) g/dL Hct (40.0-52.0) % MCV (78.0-93.0) fL MCH (26.0-32.0) pg MCHC (32.0-36.0) g/dL RDW Coeff of Geraldine (10.0-15.0) % Plt Count (130-400) x10^3/uL Neut % (Auto) (50.0-80.0) % Lymph % (Auto) (25.0-50.0) % Jack % (Auto) (2.0-11.0) % Eos % (Auto) (0.0-4.0) % Baso % (Auto) (0.2-1.2) % PT (9.6-11.4) SEC INR (2.0-3.5) APTT (21.3-33.5) SEC Sodium (136-145) mmol/L Potassium (3.5-5.1) mmol/L Chloride (98-107) mmol/L Carbon Dioxide (21-32) mmol/L Anion Gap (10-20) mmol/L BUN (7-18) mg/dL Creatinine (0.70-1.30) mg/dL Est Cr Clr Drug Dosing Estimated GFR (MDRD) Glucose (74-106) mg/dL Calcium (8.5-10.1) mg/dL POC Troponin I 0.02 (0.00-0.08) ng/mL Meds: Medications Generic Name Dose Route Start Last Admin Trade Name Cristian PRN Reason Stop Dose Admin Sodium Chloride 10 ml 11/30/18 14:23 Saline Flush FLUSH ASDIRECTED PRN Keep Vein Open Departure - Departure Time of Disposition: 14:22 Disposition: DC/Tfer to Acute Hospital 02 Condition: Fair Clinical Impression: CVA (cerebral vascular accident) Qualifiers: CVA mechanism: unspecified Qualified Code(s): I63.9 - Cerebral infarction, unspecified - Discharge Information *PRESCRIPTION DRUG MONITORING PROGRAM REVIEWED*: Not Applicable *COPY OF PRESCRIPTION DRUG MONITORING REPORT IN PATIENT JASMIN: Not Applicable Forms: Interfacility Transfer EMTALA - My Orders Last 24 Hours: My Active Orders 11/30/18 13:20 Head wo Cont [CT] Stat 11/30/18 14:23 Cardiac Monitoring [RC] . DIRECTED EKG Documentation Completion [RC] STAT Sodium Chloride 0.9% [Saline Flush] 10 ml FLUSH ASDIRECTED PRN Peripheral IV Insertion Adult [OM.PC] Stat - Assessment/Plan Last 24 Hours: My Active Orders 11/30/18 13:20 Head wo Cont [CT] Stat 11/30/18 14:23 Cardiac Monitoring [RC] . DIRECTED EKG Documentation Completion [RC] STAT Sodium Chloride 0.9% [Saline Flush] 10 ml FLUSH ASDIRECTED PRN Peripheral IV Insertion Adult [OM.PC] Stat Assessment:: 1. right arm weakness 2. decrease in responsiveness 3. Stroke code Plan: 1. EKG completed in ER. 2nd degree AV block noted. 2. Labs completed in ER 3. Stroke protocol utilized and followed. CT completed upon arrival to ER. 4. Dr. Angel contacted regarding patients symptoms and CT results. His recommendations are no further medications needed or advised. He would like pt transfer to ER as a stroke code at 14:20. 5. Family was contacted. Pt was made aware. 6. NIH initial is 7. Second 8. GCS- 14. 7. Discharge 1430 from ED.
[2018-11-30 13:59] LABS: CHLORIDE,CL 104 mmol/L (98-107); SODIUM,NA 141 mmol/L (136-145)
[2018-11-30] MEDS ORDERED: Sodium Chloride 0.9% 10 ML Syringe FLUSH PRN (14:23)
--- NOTE | 2018-11-30 16:07 | CT ---
[id number] CT/CT Head Stroke Protocol EXAM: CT Head Stroke Protocol CLINICAL DATA: STROKE CODE. COMPARISON STUDY: April 24, 2018. 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 Findings include prior bilateral basal ganglia lacunar infarctions. No acute intracranial hemorrhage or evidence of acute large vessel ischemia. IMPRESSION: No acute findings. Results relayed to Dr. Snow at time of dictation Phil Grant MD 11/30/18 4611 Thank you for allowing us to participate in the care of your patient.
== END 2018-11-30 14:30 | disposition short-term general hospital (02) ==
LOC: VM.ED 13:19
DX: I63.9 Cerebral infarction, unspecified (principal); I11.0 Hypertensive heart disease with heart failure; I50.9 Heart failure, unspecified; I25.10 Atherosclerotic heart disease of native coronary artery without angina pectoris; I48.91 Unspecified atrial fibrillation; E78.00 Pure hypercholesterolemia, unspecified; R29.708 NIHSS score 8; R40.2412 Glasgow coma scale score 13-15, at arrival to emergency department; E11.9 Type 2 diabetes mellitus without complications; E03.9 Hypothyroidism, unspecified; Z79.01 Long term (current) use of anticoagulants; Z79.899 Other long term (current) drug therapy; Z95.1 Presence of aortocoronary bypass graft; Z79.4 Long term (current) use of insulin
CPT/HCPCS: 36415; 70450; 80048; 84484; 85025; 85610; 85730; 93005; 93010; 99284-GF; 99285-25